=== PATIENT | male | born 1955 | race Caucasian/White ===

== ENCOUNTER 2016-06-13 14:26 | Emergency (ER) | payer OTHER, MEDICARE ==
[~2016-06-13] VITALS: Ht 177.8 cm; Wt 113.4 kg
[2016-06-13 14:59] LABS: BASOPHILS # (AUTO) 0.1 /CMM (0.0-0.2); BASOPHILS % (AUTO) 0.7 % (0.0-2.0); EOSINOPHILS # (AUTO) 0.3 /CMM (0.0-0.7); EOSINOPHILS % (AUTO) 2.9 % (0.0-6.0); HEMATOCRIT 42 % (39-51); HEMOGLOBIN 14.3 g/dL (13.5-17.5); LYMPHOCYTES # (AUTO) 2.9 /CMM (0.8-4.8); LYMPHOCYTES % (AUTO) 27.1 % (20.0-44.0); MEAN CORPUSCULAR HEMOGLOBIN 32 PG (26.0-33.0); MEAN CORPUSCULAR HGB CONC 34 g/dl (31.0-36.0); MEAN CORPUSCULAR VOLUME 93 fL (80-96); MONOCYTES # (AUTO) 0.7 /CMM (0.1-1.30); MONOCYTES % (AUTO) 6.9 % (2.0-12.0); NEUTROPHILS # (AUTO) 6.8 /CMM (1.8-8.9); NEUTROPHILS % (AUTO) 62.4 % (43.0-81.0); PLATELET COUNT (AUTO) 279 /CMM (150-450); RDW COEFFICIENT OF VARIATION 13.1 (11.5-15.0); RED BLOOD CELL COUNT(AUTO) 4.55 MIL/uL (4.5-6.0); WHITE BLOOD COUNT (AUTO) 10.8 K/uL (4.3-11.0)
[2016-06-13] MEDS ORDERED: IV NS 0.9% 1,000 ML BAG IV ONE (15:00)
[2016-06-13 15:11] LABS: INR 1.07 (0.87-1.13); PROTHROMBIN TIME 11.1 SECS (9.5-12.7)
[2016-06-13 15:24] LABS: THYROID STIMULATING HORMONE 1.195 uIU/mL (0.358-3.74)
[2016-06-13 15:32] LABS: ABG BASE EXCESS 1.4 mmol/L; ABG OXYGEN SATURATION 96.2 % (92.0-98.5); ABG PCO2 36.1 mmHg (35.0-45.0); ABG PH 7.458 (7.350-7.450); ABG TOTAL HEMOGLOBIN 14.1 G/dL (13.5-18.0); AaDO2 18.5 mmHg; COHb 0.7 % (0.5-1.5); MetHb 0.3 % (0.0-1.5); O2Hb 95.2 % (94.0-97.0); SITE, ABG Right Radial; VENT MODE, BG ROOM AIR
[2016-06-13 16:03] LABS: CALCIUM, SERUM 8.9 mg/dL (8.5-10.1); CARBON DIOXIDE 27 mmol/L (21-32); CHLORIDE 107 mmol/L (98-107); CREATININE 0.8 mg/dL (0.6-1.3); GFR 99 mL/min (>60); GLUCOSE 105 mg/dL (74-106); POTASSIUM 4.3 mmol/L (3.5-5.1); SODIUM SERUM 140 mmol/L (136-145); UREA NITROGEN, BLOOD 16 mg/dL (7-18)
--- NOTE | 2016-06-13 16:06 | NUR ---
PATIENT WANTS TO LEAVE AMA
[2016-06-13 16:09] LABS: ALANINE AMINOTRANSFERASE 29 U/L (12-78); ALBUMIN 3.5 g/dL (3.4-5.0); ALCOHOL, BLOOD < 3 mg/dL (0-0); ALKALINE PHOSPHATASE 139 U/L (46-116); ASPARTATE AMINOTRANSFERASE 22 U/L (15-37); BILIRUBIN,DIRECT 0.1 mg/dL (0.0-0.2); BILIRUBIN,TOTAL 0.2 mg/dL (0.2-1.0); TOTAL PROTEIN, SERUM 7.2 g/dL (6.4-8.2)
[2016-06-13 16:40] VITALS: BP 126/82
== END 2016-06-13 17:07 | disposition left against medical advice (07) ==
LOC: ER 14:28
DX: R41.0 Disorientation, unspecified (principal); E11.9 Type 2 diabetes mellitus without complications; R79.1 Abnormal coagulation profile
CPT/HCPCS: 36415; 36600; 70450-TC; 71010-TC; 80048-TC; 80076-TC; 84443-TC; 85025-TC; 85730-TC; A4606; G0480; Z7610